=== PATIENT | female | born 1950 | race Native Hawaiian/Other Pacific Islander ===

== ENCOUNTER 2020-01-02 20:11 | Emergency (ER) | payer OTHER ==
[~2020-01-02] VITALS: Ht 165.1 cm; Wt 54.4 kg
[2020-01-02 20:59] LABS: PLATELET COUNT 216 K/uL (152-353)
[2020-01-02 21:32] LABS: POTASSIUM 3.6 mmol/L (3.6-5.2)
[2020-01-02 22:15] VITALS: BP 118/74; TEMP 98.5
[2020-01-02] MEDS ORDERED: ATEN50TA36 PO (22:35)
[2020-01-02] MEDS ORDERED: DONEPEZIL HYDRO10 MG PO (22:36)
[2020-01-02] MEDS ORDERED: FURO40TA93 PO (22:37)
[2020-01-02] MEDS ORDERED: POTASSIUM CHLO20 ME1 PO (22:38)
[2020-01-02] MEDS ORDERED: QUETIAPINE50 MG PO (22:39)
[2020-01-02] MEDS ORDERED: TIROSINT75 MCG PO (22:42)
== END 2020-01-02 22:15 | disposition other institution (70) ==
LOC: ED 20:11
PROVIDERS: Family Medicine
DX: R46.89 Other symptoms and signs involving appearance and behavior (principal); F41.8 Other specified anxiety disorders; F22 Delusional disorders; Z04.6 Encounter for general psychiatric examination, requested by authority
CPT/HCPCS: 36415; 80053; 85027; 93005; 99283